=== PATIENT | female | born 1985 | race Two or more races ===

== ENCOUNTER 2016-11-02 03:57 | Emergency (ER) | payer MEDICAID, OTHER ==
[~2016-11-02] VITALS: Ht 160 cm; Wt 72.6 kg
[~2016-11-02 03:57] MED LIST: BACTRIM DOUBLE S1 E1 ORAL; CIPRO500 MG PO; HYDROCODON-ACE1 EA15 ORAL; IBUPROFEN600 MG ORAL; IBUPROFEN800 M1 PO; KEFLEX500 MG ORAL; NEOSPORIN ANT14.2 GM TP; NITROFURANTOIN100 M2 ORAL; NKM; NORCO 5-325 TA1 EACH ORAL; NORCO 5-325 TA1 EACH PO; ONDANSETRON ODT4 MG ORAL; PREDNISONE20 MG ORAL; TAMIFLU75 MG ORAL; TRAMADOL HCL50 MG ORAL; TYLENOL325 MG ORAL; ZOFRAN ODT4 MG ORAL
[2016-11-02 04:14] VITALS: BP 110/59
[2016-11-02 04:43] LABS: KETONES,URINE NEGATIVE (NEGATIVE); LEUKOCYTE ESTERASE ,URINE 3+ (NEGATIVE); NITRITE,URINE NEGATIVE (NEGATIVE); PH,URINE 6 (4.5-8.0); PROTEIN,URINE 1+ (NEGATIVE); UROBILINOGEN,URINE 8 MG/DL (0.0-1.0)
[2016-11-02 04:54] LABS: APPEARANCE,URINE SLIGHTLY CLOUDY
[2016-11-02 04:55] LABS: BACTERIA,URINE MODERATE /HPF; MUCUS,URINE FEW /LPF (NONE/OCC); SQUAMOUS EPITHELIAL CELL,UR MANY /LPF (NONE/OCC); WBC,URINE 60-80 /HPF (0 - 2); YEAST,URINE FEW /HPF
--- NOTE | 2016-11-02 05:07 | Emergency Room Report ---
History of Present Illness General Chief Complaint: Abdominal Pain Source: Patient Present Illness HPI Is a 31-year-old female with no past medical history. She presents with chief complaint of dysuria and hematuria. Onset yesterday. No nausea no vomiting. She does have chronic vaginal discharge for many months. Pap smear was unremarkable. She had urine testing for gonorrhea Chlamydia and blood testing for HIV. This was done at [facility] 2 months ago and was negative. She also said that her discharge is limited more. She essentially active with one partner. No history of STDs. No history of ectopic . No other complaint. Allergies: Coded Allergies: No Known Allergies (Unverified , 03/15/13) Patient History Past Medical History: see triage record, old chart reviewed Past Surgical History: other Pertinent Family History: none Social History: Denies: smoking Last Menstrual Period: september Now: No Immunizations: other Reviewed Nursing Documentation: PMH: Agreed, PSxH: Agreed Nursing Documentation-PMH Past Medical History: No Stated History Hx Neurological Problems: Yes - LEFT WRIST PROBLEM LAST YEAR Review of Systems Eye: Denies: blurred vision, eye pain ENT: Denies: ear pain, nose congestion, throat swelling Respiratory: Denies: cough, shortness of breath Cardiovascular: Denies: chest pain, palpitations Gastrointestinal: Denies: abdominal pain, diarrhea, nausea, vomiting Genitourinary: Reports: discharge, dysuria, hematuria, urgency Musculoskeletal: Denies: back pain, joint pain Skin: Denies: rash Neurological: Denies: headache, numbness Endocrine: Denies: increased thirst, increased urine Hematologic/Lymphatic: Denies: easy bruising All Other Systems: negative except mentioned in HPI Physical Exam Vital Signs Date Time Temp Pulse Resp B/P Pulse Ox O2 Delivery O2 Flow Rate FiO2 11/02/16 03:59 98.2 73 18 107/60 99 Room Air vitals normal Sp02 EP Interpretation: reviewed, normal General Appearance: well appearing, no apparent distress, alert Head: normocephalic, atraumatic Eyes: bilateral eye EOMI, bilateral eye PERRL ENT: hearing grossly normal, normal pharynx Neck: full range of motion, supple, no meningismus Respiratory: chest non-tender, lungs clear, normal breath sounds Cardiovascular #1: regular rate, rhythm, no murmur Gastrointestinal: normal bowel sounds, non tender, no mass, no organomegaly, no bruit, non-distended Genitourinary: other - Exam done with RN Sisi Burr as automatic wheel line operator. There is thick yellowish discharge. No cervical motion tenderness. No adnexal mass. Musculoskeletal: back normal, gait/station normal, normal range of motion Neurologic: alert, oriented x3 Psychiatric: mood/affect normal Skin: warm/dry Medical Decision Making Diagnostic Impression: Primary Impression: UTI (urinary tract infection) Qualified Codes: N30.00 - Acute cystitis without hematuria Additional Impressions: Bacterial vaginosis Vagina, candidiasis ER Course Is present with vaginal discharge and urinary complaint. Diarrhea and Chlamydia cultures sent. No evidence of Trichomonas. She she's been tested several times already, I will hold off treating gonorrhea and Chlamydia and tear we have positive culture. No evidence of ectopic. No evidence of pyelonephritis. Last Vital Signs Date Time Temp Pulse Resp B/P Pulse Ox O2 Delivery O2 Flow Rate FiO2 11/02/16 04:14 98.2 75 15 110/59 99 Room Air Status: improved Disposition: HOME, SELF-CARE Condition: Stable Scripts Fluconazole (FLUCONAZOLE) 150 Mg Tablet 150 MG ORAL ONCE, #1 TAB Prov: MANJULA WILLSON M.D. 11/02/16 Metronidazole* (FLAGYL*) 500 Mg Tablet 500 MG ORAL BID, #14 TAB 0 Refills Prov: MANJULA WILLSON M.D. 11/02/16 Cephalexin* (KEFLEX*) 500 Mg Capsule 500 MG ORAL TID, #21 CAP 0 Refills Prov: MANJULA WILLSON M.D. 11/02/16 Referrals: [facility] (PCP) Additional Instructions: Followup with your DrPayal in 3-5 days. Return if symptom worsen. MANJULA WILLSON M.D. Nov 02, 2016 05:07
[2016-11-02] MEDS ORDERED: FLAGYL500 MG ORAL (05:13)
[2016-11-02] MEDS ORDERED: FLUCONAZOLE150 MG ORAL (05:13)
[2016-11-02] MEDS ORDERED: KEFLEX500 MG ORAL (05:13)
[2016-11-02 05:15] VITALS: BP 112/62
[2016-11-02] MEDS ORDERED: Cephalexin 500mg cap ORAL ONE (05:15)
[2016-11-02 05:20] VITALS: BP 110/59
== END 2016-11-02 05:21 | disposition home or self-care (01) ==
LOC: EMR 04:29
DX: N30.00 Acute cystitis without hematuria (principal); N76.0 Acute vaginitis; B37.3 Candidiasis of vulva and vagina; R31.9 Hematuria, unspecified
CPT/HCPCS: 81003; 81025; 87086; 87181; 87210; 87491; 99284

== ENCOUNTER 2017-06-29 14:05 | Emergency (ER) | payer MEDICAID ==
[~2017-06-29] VITALS: Ht 160 cm; Wt 74.8 kg
[~2017-06-29 14:05] MED LIST changes: +FLAGYL500 MG ORAL; +FLUCONAZOLE150 MG ORAL
[2017-06-29] MEDS ORDERED: NKM (14:18)
[2017-06-29 14:57] LABS: BASOPHILS % (AUTO) 0.7 % (0.0-2.0); EOSINOPHILS % (AUTO) 2.1 % (0.0-3.0); LYMPHOCYTES % (AUTO) 24.6 % (20.0-45.0); MEAN CORPUSCULAR HEMOGLOBIN 31.5 PG (27.0-31.0); MEAN CORPUSCULAR VOLUME 95 FL (80-99); MEAN PLATELET VOLUME 8.8 FL (6.5-10.1); MONOCYTES % (AUTO) 6.4 % (1.0-10.0); NEUTROPHILS % (AUTO) 66.2 % (45.0-75.0); PLATELET COUNT 300 K/UL (150-450); RED BLOOD COUNT 4.43 M/UL (4.20-5.40); WHITE BLOOD COUNT 12.6 K/UL (4.8-10.8)
[2017-06-29 14:58] LABS: APPEARANCE,URINE CLOUDY; KETONES,URINE 1+ (NEGATIVE); LEUKOCYTE ESTERASE ,URINE 2+ (NEGATIVE); NITRITE,URINE NEGATIVE (NEGATIVE); PH,URINE 5 (4.5-8.0); PROTEIN,URINE 3+ (NEGATIVE); UROBILINOGEN,URINE 4 MG/DL (0.0-1.0)
[2017-06-29 15:05] LABS: BACTERIA,URINE FEW /HPF; RBC,URINE TNTC /HPF (0 - 2); SQUAMOUS EPITHELIAL CELL,UR FEW /LPF (NONE/OCC)
[2017-06-29 15:07] LABS: ANION GAP 7 mmol/L (5-15); CALCIUM 8.9 MG/DL (8.5-10.1); CARBON DIOXIDE 29 MMOL/L (21-32); CHLORIDE 104 MMOL/L (98-107); CREATININE 0.9 MG/DL (0.55-1.30); GLOMERULAR FILTRATION RATE > 60 mL/min (>60); POTASSIUM 3.8 MMOL/L (3.5-5.1); SODIUM 140 MMOL/L (136-145)
[2017-06-29 15:09] LABS: INR 0.9 (0.9-1.1); PROTHROMBIN TIME 9.8 SEC (9.30-11.50)
[2017-06-29 15:11] LABS: ALANINE AMINOTRANSFERASE 34 U/L (12-78); ASPARTATE AMINO TRANSFERASE 17 U/L (15-37); LIPASE 113 U/L (73-393); TOTAL PROTEIN 7.7 G/DL (6.4-8.2)
[2017-06-29] MEDS ORDERED: CEPHALEXIN500 MG ORAL (16:22)
[2017-06-29] MEDS ORDERED: IBUPROFEN600 MG ORAL (16:22)
[2017-06-29 16:28] VITALS: BP 106/67
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
--- NOTE | 2017-06-30 13:51 | Diagnostic Imaging Report ---
Indication: Vaginal bleeding Technique: Transvaginal images only. Transabdominal images not obtained, reason not stated Comparison: 02/02/2016 Findings: Nabothian cysts are seen in the cervix. The uterus measures 8.3 cm in length by 4.2 cm AP. Endometrium measures 9 mm thick. No myometrial abnormality. Right ovary measures 2.1 cm in length. It demonstrates a 14 mm follicle with hemorrhage. The left ovary cannot be visualized. No free cul-de-sac fluid Impression: Somewhat limited exam, due to absence of transabdominal images Essentially unremarkable. Incidental finding of cervical nabothian cysts. Note inability to visualize the left ovary
== END 2017-06-29 16:29 | disposition home or self-care (01) ==
LOC: EMR 14:20
DX: S39.011A Strain of muscle, fascia and tendon of abdomen, initial encounter (principal); V43.52XA Car driver injured in collision with other type car in traffic accident, initial encounter; Y92.410 Unspecified street and highway as the place of occurrence of the external cause; N93.9 Abnormal uterine and vaginal bleeding, unspecified; N39.0 Urinary tract infection, site not specified
CPT/HCPCS: 36415; 76830; 76856; 80053; 81003; 81025; 83690; 85025; 85610; 85730; 99284

== ENCOUNTER 2017-07-17 09:51 | Emergency (ER) | payer MEDICAID ==
[~2017-07-17] VITALS: Ht 157.5 cm; Wt 74.8 kg
[~2017-07-17 09:51] MED LIST changes: +CEPHALEXIN500 MG ORAL
[2017-07-17] MEDS ORDERED: Sodium Chloride 500ML 500 ML IV ONE (10:14)
[2017-07-17] MEDS ORDERED: Albuterol ud Inhalation HHN ONE (10:30)
[2017-07-17 10:40] LABS: APPEARANCE,URINE CLEAR; KETONES,URINE NEGATIVE (NEGATIVE); LEUKOCYTE ESTERASE ,URINE 3+ (NEGATIVE); NITRITE,URINE NEGATIVE (NEGATIVE); PH,URINE 6.5 (4.5-8.0); PROTEIN,URINE NEGATIVE (NEGATIVE); UROBILINOGEN,URINE NORMAL MG/DL (0.0-1.0)
[2017-07-17 11:05] LABS: BACTERIA,URINE FEW /HPF; MUCUS,URINE FEW /LPF (NONE/OCC); SQUAMOUS EPITHELIAL CELL,UR FEW /LPF (NONE/OCC)
--- NOTE | 2017-07-17 11:13 | Diagnostic Imaging Report ---
Indication: Reason For Exam: COUGH Technique: 2 views of the chest Comparison: 11/29/2015. Findings: Lungs and pleural spaces are clear. Heart size is normal. Bones are unremarkable.. Impression: No acute process
--- NOTE | 2017-07-17 11:30 | Emergency Room Report ---
History of Present Illness General Chief Complaint: Flu Like Symptoms Source: Patient Present Illness HPI Patient complains of cough for the past 5 days. She states that the cough is pretty severe 5 days ago but it has improved significantly over that time. Initially she denies sputum production but no longer has any sputum production. She denies nasal congestion or fullness. She denies headache or neck pain. She denies chest pain. She denies abdominal pain. She denies fever or chills. She has no other complaints. Allergies: Coded Allergies: No Known Allergies (Unverified , 03/15/13) Patient History Past Medical History: none Past Surgical History: none Pertinent Family History: none Social History: Denies: smoking, alcohol use, drug use Reviewed Nursing Documentation: PMH: Agreed, PSxH: Agreed Nursing Documentation-PMH Hx Neurological Problems: Yes - LEFT WRIST PROBLEM LAST YEAR Review of Systems All Other Systems: negative except mentioned in HPI Physical Exam Vital Signs Date Time Temp Pulse Resp B/P (MAP) Pulse Ox O2 Delivery O2 Flow Rate FiO2 07/17/17 09:58 98.1 76 20 101/63 99 Room Air 07/17/17 11:07 21 Sp02 EP Interpretation: reviewed, normal General Appearance: no apparent distress, alert, GCS 15, non-toxic Head: normocephalic, atraumatic Eyes: bilateral eye normal inspection, bilateral eye PERRL ENT: hearing grossly normal, normal pharynx, no angioedema, normal voice Neck: full range of motion, supple/symm/no masses Respiratory: chest non-tender, lungs clear, normal breath sounds, speaking full sentences Cardiovascular #1: regular rate, rhythm, no edema Rectal: deferred Musculoskeletal: back normal, gait/station normal, normal range of motion, non- tender Neurologic: alert, oriented x3, responsive, motor strength/tone normal, sensory intact, speech normal Psychiatric: judgement/insight normal, memory normal, mood/affect normal, no suicidal/homicidal ideation Skin: normal color, no rash, warm/dry, well hydrated Medical Decision Making Diagnostic Impression: Primary Impression: Upper respiratory infection ER Course This patient has a clinical presentation with upper respiratory tract infection. The evaluation was very reassuring with a normal lung exam, no respiratory distress, normal pulse oximetry. Chest x-ray is unremarkable. I am not concerned for pneumonia in this patient. This is most likely viral and will not need antibiotic therapy. I will treat supportively with cough suppressants. No emergency medical condition was identified. Laboratory Tests Test 07/17/17 10:20 Urine Color Yellow Urine Appearance Clear Urine pH 6.5 (4.5-8.0) Urine Specific [place] 1.015 (1.005-1.035) Urine Protein Negative (NEGATIVE) Urine Glucose (UA) Negative (NEGATIVE) Urine Ketones Negative (NEGATIVE) Urine Occult Blood 3+ (NEGATIVE) H Urine Nitrite Negative (NEGATIVE) Urine Bilirubin Negative (NEGATIVE) Urine Urobilinogen Normal MG/DL (0.0-1.0) Urine Leukocyte Esterase 3+ (NEGATIVE) H Urine RBC 2-4 /HPF (0 - 2) H Urine WBC 5-10 /HPF (0 - 2) H Urine Squamous Epithelial Cells Few /LPF (NONE/OCC) Urine Bacteria Few /HPF (NONE) Urine Mucus Few /LPF (NONE/OCC) H Microbiology Date/Time Source Procedure Growth Status 07/17/17 10:20 Nasal Nares Influenza Types A,B Antigen (ANNA) - Final Complete Chest X-Ray Diagnostic Results Chest X-Ray Diagnostic Results : Chest X-Ray Ordered: Yes # of Views/Limited/Complete: 1 View Indication: Other - cough EP Interpretation: Yes Interpretation: no consolidation, no effusion, no pneumothorax, no acute cardiopulmonary disease Impression: No acute disease Electronically Signed by: Allan Last Vital Signs Date Time Temp Pulse Resp B/P (MAP) Pulse Ox O2 Delivery O2 Flow Rate FiO2 07/17/17 11:07 21 07/17/17 11:07 75 20 Room Air 07/17/17 09:58 98.1 101/63 99 Status: improved Disposition: HOME, SELF-CARE Condition: Improved Referrals: [facility]ERR[facility] (PCP) HARIS MORELAND D.O. Jul 17, 2017 11:30
[2017-07-17 11:43] VITALS: BP 118/76
== END 2017-07-17 11:43 | disposition home or self-care (01) ==
LOC: EMR 10:12
DX: J06.9 Acute upper respiratory infection, unspecified (principal)
CPT/HCPCS: 71020; 81003; 86710; 94640; 94664; 99283; J7040

== ENCOUNTER 2018-02-02 14:01 | Emergency (ER) | payer MEDICAID, OTHER ==
[~2018-02-02] VITALS: Ht 157.5 cm; Wt 68.0 kg
--- NOTE | 2018-02-02 14:33 | Emergency Room Report ---
History of Present Illness General Chief Complaint: Abdominal Pain Source: Patient Present Illness HPI Pt sent from PCP office for elevated BP and concern for pregnanacy. Pt complains of lower abd pain, no vaginal d/c or dysuria. Pt states home BP was 174 systolic. Pt is [id number] 01/11. Allergies: Coded Allergies: No Known Allergies (Unverified , 03/15/13) Patient History Past Medical History: none Past Surgical History: none Pertinent Family History: none Social History: Denies: smoking, alcohol use, drug use Last Menstrual Period: 01/07/18 : 2 Para: 2 Nursing Documentation-[facility] Past Medical History: No Stated History Hx Neurological Problems: Yes - LEFT WRIST PROBLEM LAST YEAR Review of Systems Constitutional: Denies: no symptoms, see HPI, chills, sweats, fever, malaise, weakness, other Eye: Denies: no symptoms, see HPI, eye pain, blurred vision, tearing, double vision, nose pain, nose congestion, acuity changes, discharge, other ENT: Denies: no symptoms, see HPI, ear pain, ear discharge, nose pain, nose congestion, throat pain, throat swelling, mouth pain, hearing loss, nasal discharge, other Respiratory: Denies: no symptoms, see HPI, cough, orthopnea, shortness of breath, stridor, wheezing, KANG, sputum, other Cardiovascular: Denies: no symptoms, see HPI, chest pain, edema, palpitations, syncope, PND, other Gastrointestinal: Denies: no symptoms, see HPI, abdominal pain, constipation, diarrhea, nausea, vomiting, melena, hematemesis, other Genitourinary: Reports: see HPI Musculoskeletal: Denies: no symptoms, see HPI, back pain, gout, joint pain, joint swelling, muscle pain, muscle stiffness, other Skin: Denies: no symptoms, see HPI, rash, change in color, change in hair/nails , dryness, lesions, other Psychiatric: Denies: no symptoms, see HPI, prior hx, anxiety, depressed feelings, emotional problems, SI, HI, hallucinations, other Neurological: Denies: no symptoms, see HPI, headache, numbness, paresthesia, seizure, tingling, tremors, focal weakness, syncope, dizziness, other Hematologic/Lymphatic: Denies: no symptoms, see HPI, anemia, blood clots, easy bleeding, easy bruising, swollen glands, diathesis, other Physical Exam Vital Signs Date Time Temp Pulse Resp B/P (MAP) Pulse Ox O2 Delivery O2 Flow Rate FiO2 02/02/18 14:08 98.3 82 18 106/53 97 Room Air 98.2 Sp02 EP Interpretation: reviewed, normal General Appearance: no apparent distress, alert, GCS 15, non-toxic Head: normocephalic, atraumatic Eyes: bilateral eye normal inspection, bilateral eye PERRL ENT: hearing grossly normal, normal pharynx, no angioedema, normal voice Neck: full range of motion, supple/symm/no masses Respiratory: chest non-tender, lungs clear, normal breath sounds, speaking full sentences Cardiovascular #1: regular rate, rhythm, no edema Cardiovascular #2: 2+ carotid (R), 2+ carotid (L), 2+ radial (R), 2+ radial (L) , 2+ dorsalis pedis (R), 2+ dorsalis pedis (L) Gastrointestinal: normal bowel sounds, non tender, soft, non-distended, no guarding, no rebound Musculoskeletal: back normal, gait/station normal, normal range of motion, non- tender, calf tenderness Neurologic: alert, oriented x3, responsive, motor strength/tone normal, sensory intact, speech normal Psychiatric: judgement/insight normal, memory normal, mood/affect normal, no suicidal/homicidal ideation Reflexes: 3+ bicep (R), 3+ bicep (L), 3+ tricep (R), 3+ tricep (L), 3+ knee (R) , 3+ knee (L) Skin: normal color, no rash, warm/dry, well hydrated Medical Decision Making Diagnostic Impression: Primary Impression: UTI (urinary tract infection) ER Course Pt with lower abd pain and concern for preganancy with HTN. Pts BP has been normal here. Labs show ?UTI with dirty sample but will start antibiotics given symptoms and pt will call in 48 hours fro culture results.Pt agrees with D/C home and plan. Laboratory Tests Test 02/02/18 14:40 White Blood Count 9.9 K/UL (4.8-10.8) Red Blood Count 4.01 M/UL (4.20-5.40) L Hemoglobin 12.7 G/DL (12.0-16.0) Hematocrit 37.8 % (37.0-47.0) Mean Corpuscular Volume 94 FL (80-99) Mean Corpuscular Hemoglobin 31.5 PG (27.0-31.0) H Mean Corpuscular Hemoglobin Concent 33.5 G/DL (32.0-36.0) Red Cell Distribution Width 11.1 % (11.6-14.8) L Platelet Count 232 K/UL (150-450) Mean Platelet Volume 9.0 FL (6.5-10.1) Neutrophils (%) (Auto) 58.8 % (45.0-75.0) Lymphocytes (%) (Auto) 30.8 % (20.0-45.0) Monocytes (%) (Auto) 6.9 % (1.0-10.0) Eosinophils (%) (Auto) 2.6 % (0.0-3.0) Basophils (%) (Auto) 0.9 % (0.0-2.0) Urine Color [place] Urine Appearance Slightly cloudy Urine pH 7 (4.5-8.0) Urine Specific [place] 1.015 (1.005-1.035) Urine Protein 1+ (NEGATIVE) H Urine Glucose (UA) Negative (NEGATIVE) Urine Ketones Negative (NEGATIVE) Urine Occult Blood 2+ (NEGATIVE) H Urine Nitrite Negative (NEGATIVE) Urine Bilirubin Negative (NEGATIVE) Urine Ictotest Negative Urine Urobilinogen 4 MG/DL (0.0-1.0) H Urine Leukocyte Esterase 2+ (NEGATIVE) H Urine RBC 60-80 /HPF (0 - 2) H Urine WBC 10-15 /HPF (0 - 2) H Urine Squamous Epithelial Cells Moderate /LPF (NONE/OCC) H Urine Bacteria Moderate /HPF (NONE) H Urine HCG, Qualitative Negative (NEGATIVE) Sodium Level 141 MMOL/L (136-145) Potassium Level 3.6 MMOL/L (3.5-5.1) Chloride Level 106 MMOL/L (98-107) Carbon Dioxide Level 28 MMOL/L (21-32) Anion Gap 7 mmol/L (5-15) Blood Urea Nitrogen 13 mg/dL (7-18) Creatinine 0.8 MG/DL (0.55-1.30) Estimat Glomerular Filtration Rate > 60 mL/min (>60) Glucose Level 97 MG/DL (74-106) Calcium Level 8.8 MG/DL (8.5-10.1) Total Bilirubin 0.4 MG/DL (0.2-1.0) Aspartate Amino Transf (AST/SGOT) 13 U/L (15-37) L Alanine Aminotransferase (ALT/SGPT) 25 U/L (12-78) Alkaline Phosphatase 59 U/L (46-116) Total Protein 7.2 G/DL (6.4-8.2) Albumin 3.7 G/DL (3.4-5.0) Globulin 3.5 g/dL Albumin/Globulin Ratio 1.1 (1.0-2.7) Lipase 109 U/L (73-393) Human Chorionic Gonadotropin, Quant 1 mIU/mL (1-6) Last Vital Signs Date Time Temp Pulse Resp B/P (MAP) Pulse Ox O2 Delivery O2 Flow Rate FiO2 02/02/18 14:08 98.3 82 18 106/53 97 Room Air 98.2 Disposition: HOME, SELF-CARE Condition: Stable Scripts Cephalexin* (KEFLEX*) 500 Mg Capsule 500 MG ORAL EVERY 6 HOURS for 7 Days, #21 CAP Prov: JUSTIN GODOY 02/02/18 JUSTIN GODOY Feb 02, 2018 14:33
[2018-02-02 14:45] VITALS: BP 106/53
[2018-02-02 15:11] LABS: BASOPHILS % (AUTO) 0.9 % (0.0-2.0); EOSINOPHILS % (AUTO) 2.6 % (0.0-3.0); HEMATOCRIT 37.8 % (37.0-47.0); HEMOGLOBIN 12.7 G/DL (12.0-16.0); LYMPHOCYTES % (AUTO) 30.8 % (20.0-45.0); MEAN CORPUSCULAR VOLUME 94 FL (80-99); MONOCYTES % (AUTO) 6.9 % (1.0-10.0); NEUTROPHILS % (AUTO) 58.8 % (45.0-75.0); PLATELET COUNT 232 K/UL (150-450); RED BLOOD COUNT 4.01 M/UL (4.20-5.40); RED CELL DISTRIBUTION WIDTH 11.1 % (11.6-14.8); WHITE BLOOD COUNT 9.9 K/UL (4.8-10.8)
[2018-02-02 15:13] LABS: APPEARANCE,URINE SLIGHTLY CLOUDY; BILIRUBIN, URINE NEGATIVE (NEGATIVE); COLOR,URINE AMBER; GLUCOSE, URINE (UA) NEGATIVE (NEGATIVE); KETONES,URINE NEGATIVE (NEGATIVE); LEUKOCYTE ESTERASE ,URINE 2+ (NEGATIVE); NITRITE,URINE NEGATIVE (NEGATIVE); PH,URINE 7 (4.5-8.0); PROTEIN,URINE 1+ (NEGATIVE); UROBILINOGEN,URINE 4 MG/DL (0.0-1.0)
[2018-02-02 15:24] LABS: ANION GAP 7 mmol/L (5-15); BLOOD UREA NITROGEN 13 mg/dL (7-18); CALCIUM 8.8 MG/DL (8.5-10.1); CARBON DIOXIDE 28 MMOL/L (21-32); CHLORIDE 106 MMOL/L (98-107); CREATININE 0.8 MG/DL (0.55-1.30); POTASSIUM 3.6 MMOL/L (3.5-5.1); SODIUM 141 MMOL/L (136-145)
[2018-02-02 15:28] LABS: ALANINE AMINOTRANSFERASE 25 U/L (12-78); ALBUMIN 3.7 G/DL (3.4-5.0); ALBUMIN/GLOBULIN RATIO 1.1 (1.0-2.7); ALKALINE PHOSPHATASE 59 U/L (46-116); ASPARTATE AMINO TRANSFERASE 13 U/L (15-37); BILIRUBIN,TOTAL 0.4 MG/DL (0.2-1.0)
[2018-02-02] MEDS ORDERED: CEPHALEXIN500 MG ORAL (16:00)
[2018-02-02 16:15] VITALS: BP 110/72
== END 2018-02-02 16:28 | disposition home or self-care (01) ==
LOC: EMR 16:28
DX: N39.0 Urinary tract infection, site not specified (principal)
CPT/HCPCS: 36415; 80053; 81003; 81025; 83690; 84702; 85025; 87086; 87181; 99283

== ENCOUNTER 2018-03-30 06:40 | Emergency (ER) | payer OTHER ==
[~2018-03-30] VITALS: Ht 157.5 cm; Wt 72.6 kg
[2018-03-30 06:58] VITALS: BP 97/55
[2018-03-30] MEDS ORDERED: IBUPROFEN600 MG ORAL (07:08)
--- NOTE | 2018-03-30 07:08 | Emergency Room Report ---
History of Present Illness General Chief Complaint: Pain Source: Patient Present Illness HPI Patient presents with complaints of pain to the left facial region Essentially points to just anterior to the left year and moving upward towards the temporal area Denies any type pain denies any visual changes Discomfort started on Friday and has persisted Denies any ear pain denies any fevers or chills Denies any recent dental work Pain is worse with touch and movement Allergies: Coded Allergies: No Known Allergies (Unverified , 03/15/13) Patient History Past Medical History: see triage record Pertinent Family History: none Reviewed Nursing Documentation: PMH: Agreed; PSxH: Agreed Nursing Documentation-[facility] Past Medical History: No Stated History Hx Neurological Problems: Yes - LEFT WRIST PROBLEM LAST YEAR Review of Systems All Other Systems: negative except mentioned in HPI Physical Exam Vital Signs Date Time Temp Pulse Resp B/P (MAP) Pulse Ox O2 Delivery O2 Flow Rate FiO2 03/30/18 06:49 98.1 72 16 97/55 97 Room Air 98.1 Sp02 EP Interpretation: reviewed, normal General Appearance: well appearing, no apparent distress Head: normocephalic, atraumatic, other - Some discomfort reproduced on palpation of the region just anterior to the tragus on the left side, also discomfort just appear to that Eyes: bilateral eye PERRL, bilateral eye EOMI ENT: normal pharynx, no angioedema, other - Left back molar lower tooth appears to be eroding into the gingival area Neck: supple, thyroid normal Respiratory: lungs clear, normal breath sounds Cardiovascular #1: regular rate, rhythm Gastrointestinal: non tender, soft Musculoskeletal: normal inspection - Patient able to open and close her mouth, it does consult some discomfort to the left TMJ region Neurologic: alert, oriented x3, it security administrator III-XII nml as tested Skin: no rash, warm/dry Lymphatic: no adenopathy Medical Decision Making Diagnostic Impression: Primary Impression: TMJ pain dysfunction syndrome ER Course Patient's discomfort is palpated at the TMJ site on the left side, there is question of some dental pathology as well, no obvious trismus Patient does not display other signs of temporal arteritis At this time will have initial conservative outpatient trial and return with any changes Recommended to follow up with primary physician also dentist in the next 2-3 days Last Vital Signs Date Time Temp Pulse Resp B/P (MAP) Pulse Ox O2 Delivery O2 Flow Rate FiO2 03/30/18 06:58 98.1 16 97/55 97 Room Air 98.1 03/30/18 06:49 72 Status: unchanged Disposition: HOME, SELF-CARE Condition: Stable Referrals: NOT CHOSEN IPA/MD,REFERRING (PCP) Additional Instructions: Patient is provided with the discharge instructions notified to follow up with primary doctor in the next 2-3 days otherwise return to the er with any worsening symptoms. Please note that this report is being documented using DRAGON technology. This can lead to erroneous entry secondary to incorrect interpretation by the dictating instrument. Gabby Raman DO Mar 30, 2018 07:08
[2018-03-30 07:24] VITALS: BP 97/55
== END 2018-03-30 07:24 | disposition home or self-care (01) ==
LOC: EMR 06:58
DX: M26.602 Left temporomandibular joint disorder, unspecified (principal)
CPT/HCPCS: 99282

== ENCOUNTER 2018-06-26 05:22 | Emergency (ER) | payer OTHER ==
[~2018-06-26] VITALS: Ht 157.5 cm; Wt 72.6 kg
[2018-06-26 05:43] VITALS: BP 112/65
[2018-06-26] MEDS ORDERED: Methocarbamol 750mg tab ORAL ONE (06:00)
[2018-06-26] MEDS ORDERED: Ketorolac 30mg Inj IM ONE (06:00)
[2018-06-26] MEDS ORDERED: Norco 5mg/325mg tab ORAL ONE (06:00)
[2018-06-26 06:12] VITALS: BP 110/59
[2018-06-26] MEDS ORDERED: ROBAXIN-750750 MG PO (06:28)
[2018-06-26] MEDS ORDERED: LIDODERM700 M1 TOPIC (06:28)
[2018-06-26] MEDS ORDERED: IBUPROFEN600 MG ORAL (06:28)
[2018-06-26] MEDS ORDERED: NORCO 5-325 TA1 EACH ORAL (06:28)
[2018-06-26 06:59] VITALS: BP 112/65
--- NOTE | 2018-06-26 22:18 | Emergency Room Report ---
History of Present Illness General Chief Complaint: Neck Pain Source: Patient Present Illness HPI 32-year-old female presents ED for evaluation. Complaining of neck pain 5 days. Started when she woke up on Friday. States that she's been having on and off neck problems. States that her pillows are old. States that she has had a previous next spasm in the past. Pain is sharp, 10 out of 10, nonradiating. Denies headache, photophobia. Denies blurry vision. Denies nausea or vomiting. Denies fevers or chills. Denies recent injury. No other aggravating relieving factors. Denies any other associated symptoms Allergies: Coded Allergies: No Known Allergies (Unverified , 03/15/13) Patient History Past Medical History: none Past Surgical History: none Pertinent Family History: none Social History: Denies: smoking, alcohol use, drug use Last Menstrual Period: 06/24/18 Now: No Immunizations: UTD Reviewed Nursing Documentation: PMH: Agreed; PSxH: Agreed Nursing Documentation-PMH Past Medical History: No Stated History Hx Neurological Problems: Yes - LEFT WRIST PROBLEM LAST YEAR Review of Systems All Other Systems: negative except mentioned in HPI Physical Exam Vital Signs Date Time Temp Pulse Resp B/P (MAP) Pulse Ox O2 Delivery O2 Flow Rate FiO2 06/26/18 05:26 98.2 70 16 102/65 98 Room Air Sp02 EP Interpretation: reviewed, normal General Appearance: no apparent distress, alert, GCS 15, non-toxic Head: normocephalic Eyes: bilateral eye normal inspection, bilateral eye PERRL ENT: hearing grossly normal, normal pharynx, no angioedema, normal voice, TMs + canals normal Neck: no meningismus, no bony tend, tender lateral Respiratory: normal inspection Cardiovascular #1: normal inspection Gastrointestinal: normal inspection Rectal: deferred Genitourinary: no CVA tenderness Musculoskeletal: normal inspection Neurologic: alert, oriented x3, responsive, turkey cleaner III-XII nml as tested, motor strength/tone normal, sensory intact, speech normal Psychiatric: normal inspection Skin: normal inspection Lymphatic: normal inspection Medical Decision Making Diagnostic Impression: Primary Impression: Cervical strain, acute Qualified Codes: S16.1XXA - Strain of muscle, fascia and tendon at neck level , initial encounter Additional Impression: Neck pain ER Course Hospital Course 32-year-old female presents ED complaining of left-sided neck pain x 5 days Differential diagnoses include: neck strain, shoulder strain, dislocation/ fracture Clinical course Patient placed on stretcher. After initial history and physical exam reveals a female in mild acute distress. On exam there is no midline neck tenderness or shoulder tenderness. Full range of motion to the shoulder. There is pain over the trapezius. Consistent with a neck strain/shoulder strain I ordered Toradol, [place], Lidoderm patch, Robaxin in ED. Upon reassessment pain is improved Discussed findings with patient. We will discharge with similar regimen of pain medications. Safe for discharge close outpatient follow-up Diagnosis - cervical strain Stable and discharged to home with prescription for treatment motrin, robaxin, lidoderm, norco. Followup with PMD. Return to ED if symptoms recur or worsen Last Vital Signs Date Time Temp Pulse Resp B/P (MAP) Pulse Ox O2 Delivery O2 Flow Rate FiO2 06/26/18 06:59 98.5 72 15 112/65 100 Room Air Status: improved Disposition: HOME, SELF-CARE Condition: Stable Scripts Lidocaine (Lidoderm) 1 Each Adh..patch 1 PATCH TOPIC DAILY, #7 PATCH 0 Refills Patch(es) may remain in place for up to 12 hours in any 24-hour period. Prov: Jake Carr MD 06/26/18 Methocarbamol* (ROBAXIN-750*) 750 Mg Tablet 750 MG PO TID, #21 TAB 0 Refills Prov: Jake Carr MD 06/26/18 Hydrocodone Bit/Acetaminophen 5-325* (NORCO 5-325*) 1 Each Tablet 1 TAB ORAL Q6H PRN for For Pain, #10 TAB 0 Refills Prov: Jake Carr MD 06/26/18 Ibuprofen* (MOTRIN*) 600 Mg Tablet 600 MG ORAL Q8H PRN for For Pain, #30 TAB 0 Refills Prov: Jake Carr MD 06/26/18 Departure Forms: Return to Work Return to Work Date: Jun 29, 2018 Work Restrictions: No Heavy Lifting Patient Instructions: Cervical Strain and Sprain With Rehab-Sports[facility] Jake Carr MD Jun 26, 2018 22:18
== END 2018-06-26 06:59 | disposition home or self-care (01) ==
LOC: EMR 05:39
DX: S16.1XXA Strain of muscle, fascia and tendon at neck level, initial encounter (principal); X58.XXXA Exposure to other specified factors, initial encounter
CPT/HCPCS: 96372; 99283; J1885

== ENCOUNTER 2018-09-12 08:43 | Emergency (ER) | payer OTHER ==
[~2018-09-12] VITALS: Ht 157.5 cm; Wt 74.8 kg
[~2018-09-12 08:43] MED LIST changes: +LIDODERM700 M1 TOPIC; +ROBAXIN-750750 MG PO
--- NOTE | 2018-09-12 08:55 | NUR ---
ED Nurse Note: PT WALKED IN TO ER TODAY FROM HOME. AOX4. PT C/O ABDOMINAL CRAMPING, 8/10 PAIN, NAUSEA, VOMITING AND DIARRHEA X 2 DAYS AGO. ACTIVE BOWEL SOUNDS IN ALL QUADRANTS. ABDOMEN NONDISTENDED AND NONTENDER TO PALPATION. LAST BM X THIS AM WHICH PT STATES WAS LIQUID. 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
[2018-09-12 09:28] LABS: BASOPHILS % (AUTO) 0.7 % (0.0-2.0); EOSINOPHILS % (AUTO) 2.5 % (0.0-3.0); HEMATOCRIT 39.8 % (37.0-47.0); HEMOGLOBIN 13.8 G/DL (12.0-16.0); LYMPHOCYTES % (AUTO) 24.1 % (20.0-45.0); MEAN CORPUSCULAR VOLUME 93 FL (80-99); MONOCYTES % (AUTO) 3.9 % (1.0-10.0); NEUTROPHILS % (AUTO) 68.9 % (45.0-75.0); PLATELET COUNT 294 K/UL (150-450); RED BLOOD COUNT 4.27 M/UL (4.20-5.40); WHITE BLOOD COUNT 11.7 K/UL (4.8-10.8)
[2018-09-12 09:31] LABS: APPEARANCE,URINE CLEAR; BILIRUBIN, URINE NEGATIVE (NEGATIVE); GLUCOSE, URINE (UA) NEGATIVE (NEGATIVE); KETONES,URINE 1+ (NEGATIVE); LEUKOCYTE ESTERASE ,URINE 1+ (NEGATIVE); NITRITE,URINE NEGATIVE (NEGATIVE); PH,URINE 6 (4.5-8.0); PROTEIN,URINE 2+ (NEGATIVE); UROBILINOGEN,URINE 4 MG/DL (0.0-1.0)
[2018-09-12 09:41] LABS: COLOR,URINE YELLOW
[2018-09-12 09:48] LABS: ANION GAP 9 mmol/L (5-15); BLOOD UREA NITROGEN 8 mg/dL (7-18); CALCIUM 9.1 MG/DL (8.5-10.1); CARBON DIOXIDE 25 MMOL/L (21-32); CHLORIDE 101 MMOL/L (98-107); CREATININE 0.6 MG/DL (0.55-1.30); POTASSIUM 3.6 MMOL/L (3.5-5.1); SODIUM 135 MMOL/L (136-145)
[2018-09-12 09:49] LABS: ALANINE AMINOTRANSFERASE 30 U/L (12-78); ALBUMIN 3.3 G/DL (3.4-5.0); ALBUMIN/GLOBULIN RATIO 0.8 (1.0-2.7); ALKALINE PHOSPHATASE 63 U/L (46-116); ASPARTATE AMINO TRANSFERASE 17 U/L (15-37); BILIRUBIN,TOTAL 0.4 MG/DL (0.2-1.0)
[2018-09-12] MEDS ORDERED: RANITIDINE HCL150 MG ORAL (10:46)
[2018-09-12] MEDS ORDERED: DICYCLOMINE HCL10 MG PO (10:46)
[2018-09-12] MEDS ORDERED: ONDANSETRON ODT4 MG BC (10:46)
[2018-09-12 10:52] VITALS: BP 110/72
--- NOTE | 2018-09-12 10:52 | Diagnostic Imaging Report ---
EXAM: US First Trimester, Transabdominal US , Transvaginal CLINICAL HISTORY: ABD PAIN TECHNIQUE: Real-time transabdominal and transvaginal obstetrical ultrasound of the maternal pelvis and a first trimester with image documentation. Transvaginal imaging was used for better evaluation of the fetus and adnexa. COMPARISON: No relevant prior studies available. FINDINGS: Gestation: Single, live, intrauterine gestation, with estimated gestational age of 11 weeks 3 days and ROCAEL of 03/31/19. [place]-rump length of 44.8 mm. 9 x 8 mm yolk sac. heart rate of 153 bpm. Placenta/amniotic fluid: Cannot be adequately evaluated due to the early gestational age. Uterus/cervix: Septated uterus. Subcentimeter cervical nabothian cysts. Cervical length of 4.3 cm. No myometrial mass. Ovaries: The ovaries were not identified by transvaginal sonography. Free fluid: No free fluid. IMPRESSION: 1. Single, live, intrauterine gestation, with estimated gestational age of 11 weeks 3 days and ROCAEL of 03/31/19. 2. Septated uterus. 3. Subcentimeter cervical nabothian cysts.
--- NOTE | 2018-09-12 10:54 | NUR ---
ED Nurse Note: PT LAYING PEACEFULLY IN BED IN NAD. AOX4. PRESCRIPTIONS AND DISCHARGE PAPERWORK EXPLAINED TO PT. PT VERBALIZES UNDERSTANDING AND ALL QUESTIONS ANSWERED. PRESCRIPTIONS AND DISCHARGE PAPERWORK GIVEN TO PT, IV AND ID WRISTBAND REMOVED. PT WALKED OUT OF ER WITH STEADY GAIT AND ALL BELONGINGS.
--- NOTE | 2018-09-12 14:03 | Emergency Room Report ---
History of Present Illness General Chief Complaint: Complications Source: Patient Present Illness HPI 33-year-old female presents ED for evaluation. Present with abdominal pain with vomiting and diarrhea 2 days. Pain is cramping, 8 out of 10, nonradiating. Denies any recent travel or recent antibiotic use. Denies sick contacts. States that she is about 12 weeks . Denies any spotting or bleeding. Denies fevers or chills. No other aggravating relieving factors. Denies any other associated symptoms Allergies: Coded Allergies: No Known Allergies (Unverified , 03/15/13) Patient History Past Medical History: none Past Surgical History: none Pertinent Family History: none Social History: Denies: smoking, alcohol use, drug use Last Menstrual Period: 06/18/2018 Now: Yes : 3 Para: 2 Immunizations: UTD Reviewed Nursing Documentation: PMH: Agreed; PSxH: Agreed Nursing Documentation-PM Past Medical History: No Stated History Hx Neurological Problems: Yes - LEFT WRIST PROBLEM LAST YEAR Review of Systems All Other Systems: negative except mentioned in HPI Physical Exam Vital Signs Date Time Temp Pulse Resp B/P (MAP) Pulse Ox O2 Delivery O2 Flow Rate FiO2 09/12/18 08:51 98.2 92 16 105/66 97 Room Air Sp02 EP Interpretation: reviewed, normal General Appearance: no apparent distress, alert, GCS 15, non-toxic Head: normocephalic, atraumatic Eyes: bilateral eye normal inspection, bilateral eye PERRL ENT: hearing grossly normal, normal pharynx, no angioedema, normal voice Neck: full range of motion, supple/symm/no masses Respiratory: chest non-tender, lungs clear, normal breath sounds, speaking full sentences Cardiovascular #1: regular rate, rhythm, no edema Cardiovascular #2: 2+ carotid (R), 2+ carotid (L), 2+ radial (R), 2+ radial (L) , 2+ dorsalis pedis (R), 2+ dorsalis pedis (L) Gastrointestinal: normal bowel sounds, non tender, soft, non-distended, no guarding, no rebound Rectal: deferred Genitourinary: normal inspection, no CVA tenderness Musculoskeletal: back normal, gait/station normal, normal range of motion, non- tender Neurologic: alert, oriented x3, responsive, motor strength/tone normal, sensory intact, speech normal Psychiatric: judgement/insight normal, memory normal, mood/affect normal, no suicidal/homicidal ideation Reflexes: 3+ bicep (R), 3+ bicep (L), 3+ tricep (R), 3+ tricep (L), 3+ knee (R) , 3+ knee (L) Skin: normal color, no rash, warm/dry, well hydrated Lymphatic: no adenopathy Medical Decision Making Diagnostic Impression: Primary Impression: Threatened Additional Impression: Gastroenteritis ER Course Hospital Course 33-year-old female presents to ED complaining of abdominal pain with vomiting and dirrhea, + Differential diagnoses include: gastrits, gastroenterits, ectopic , ovarian torsion/cyst, UTI Clinical course Patient placed on stretcher in ED. After initial history and physical I ordered labs, IV fluids and Zofran, pepcid and pelvic ultrasound. Labs-no leukocytosis, electrolytes okay, UA negative OB ultrasound-IUP detected with heart rate Discussed findings with patient. Likely gastroenteritis. Still recommended patient follow-up with her DIRECTOR OF PUPIL PERSONNEL PROGRAM with serial ultrasounds. Patient agrees with plan. Safe for discharge close outpatient follow-up. States she has a PMD Diagnosis - threatened , gastroenteritis Stable and discharged to home with Rx zofran, zantac, bentyl. Followup with PMD /DIRECTOR OF PUPIL PERSONNEL PROGRAM. Return to ED if symptoms recur or worsen Labs Test 09/12/18 09:11 White Blood Count 11.7 K/UL (4.8-10.8) Red Blood Count 4.27 M/UL (4.20-5.40) Hemoglobin 13.8 G/DL (12.0-16.0) Hematocrit 39.8 % (37.0-47.0) Mean Corpuscular Volume 93 FL (80-99) Mean Corpuscular Hemoglobin 32.4 PG (27.0-31.0) Mean Corpuscular Hemoglobin Concent 34.8 G/DL (32.0-36.0) Red Cell Distribution Width 11.0 % (11.6-14.8) Platelet Count 294 K/UL (150-450) Mean Platelet Volume 7.3 FL (6.5-10.1) Neutrophils (%) (Auto) 68.9 % (45.0-75.0) Lymphocytes (%) (Auto) 24.1 % (20.0-45.0) Monocytes (%) (Auto) 3.9 % (1.0-10.0) Eosinophils (%) (Auto) 2.5 % (0.0-3.0) Basophils (%) (Auto) 0.7 % (0.0-2.0) Urine Color Yellow Urine Appearance Clear Urine pH 6 (4.5-8.0) Urine Specific [place] 1.020 (1.005-1.035) Urine Protein 2+ (NEGATIVE) Urine Glucose (UA) Negative (NEGATIVE) Urine Ketones 1+ (NEGATIVE) Urine Blood 4+ (NEGATIVE) Urine Nitrite Negative (NEGATIVE) Urine Bilirubin Negative (NEGATIVE) Urine Urobilinogen 4 MG/DL (0.0-1.0) Urine Leukocyte Esterase 1+ (NEGATIVE) Urine RBC 2-4 /HPF (0 - 2) Urine WBC 2-4 /HPF (0 - 2) Urine Squamous Epithelial Cells Few /LPF (NONE/OCC) Urine Bacteria Few /HPF (NONE) Urine Mucus Moderate /LPF (NONE/OCC) Urine HCG, Qualitative Positive (NEGATIVE) Sodium Level 135 MMOL/L (136-145) Potassium Level 3.6 MMOL/L (3.5-5.1) Chloride Level 101 MMOL/L (98-107) Carbon Dioxide Level 25 MMOL/L (21-32) Anion Gap 9 mmol/L (5-15) Blood Urea Nitrogen 8 mg/dL (7-18) Creatinine 0.6 MG/DL (0.55-1.30) Estimat Glomerular Filtration Rate > 60 mL/min (>60) Glucose Level 110 MG/DL (74-106) Calcium Level 9.1 MG/DL (8.5-10.1) Total Bilirubin 0.4 MG/DL (0.2-1.0) Aspartate Amino Transf (AST/SGOT) 17 U/L (15-37) Alanine Aminotransferase (ALT/SGPT) 30 U/L (12-78) Alkaline Phosphatase 63 U/L (46-116) Total Protein 7.4 G/DL (6.4-8.2) Albumin 3.3 G/DL (3.4-5.0) Globulin 4.1 g/dL Albumin/Globulin Ratio 0.8 (1.0-2.7) Lipase 117 U/L (73-393) Human Chorionic Gonadotropin, Quant 022220 mIU/mL (1-6) CT/MRI/US Diagnostic Results CT/MRI/US Diagnostic Results : Imaging Test Ordered: OB US Impression 1. Single, live, intrauterine gestation, with estimated gestational age of 11 weeks 3 days and ROCAEL of 03/31/19. 2. Septated uterus. 3. Subcentimeter cervical nabothian cysts. Last Vital Signs Date Time Temp Pulse Resp B/P (MAP) Pulse Ox O2 Delivery O2 Flow Rate FiO2 09/12/18 10:52 98.4 86 16 110/72 99 Room Air Status: improved Disposition: HOME, SELF-CARE Condition: Stable Scripts Dicyclomine Hcl* (DICYCLOMINE HCL*) 10 Mg Capsule 10 MG PO QID for 5 Days, CAP Prov: Jake Carr MD 09/12/18 Ranitidine Hcl* (ZANTAC*) 150 Mg Tablet 150 MG ORAL TWICE A DAY, #30 TAB Prov: Jake Carr MD 09/12/18 Ondansetron Odt* (ZOFRAN ODT*) 4 Mg Tab.rapdis 4 MG BC EVERY 8 HOURS, #10 TAB 0 Refills Prov: Jake Carr MD 09/12/18 Patient Instructions: Threatened Miscarriage, Ynve-px-Oegu, Viral Gastroenteritis, Adult, Eydu-hv-Hmem Jake Carr MD Sep 12, 2018 14:03
== END 2018-09-12 10:54 | disposition home or self-care (01) ==
LOC: EMR 09:19
DX: O20.0 Threatened abortion (principal); Z3A.12 12 weeks gestation of pregnancy; O26.891 Other specified pregnancy related conditions, first trimester; K52.9 Noninfective gastroenteritis and colitis, unspecified; N88.8 Other specified noninflammatory disorders of cervix uteri
CPT/HCPCS: 36415; 76801; 76830; 80053; 81003; 81025; 83690; 84702; 85025; 96361; 96374; 96375; 99284; J2405; S0028

== ENCOUNTER 2019-04-25 08:54 | Emergency (ER) | payer MEDICAID, OTHER ==
[~2019-04-25] VITALS: Ht 157.5 cm; Wt 77.1 kg
[~2019-04-25 08:54] MED LIST changes: +DICYCLOMINE HCL10 MG PO; +ONDANSETRON ODT4 MG BC; +RANITIDINE HCL150 MG ORAL
[2019-04-25 08:57] VITALS: BP 104/55
--- NOTE | 2019-04-25 09:05 | NUR ---
ED Nurse Note: patient walked into ED from home complaining RIGHT wrist pain and inability to move fingers since last night. patient denies any injury or truam. patient is alert awake x4 ambulatory steady gait, breathing unlabored and even, speaking in full sentences. Rt wrist pain unable to move fingers started last night denies any tauma.
--- NOTE | 2019-04-25 09:25 | Emergency Room Report ---
History of Present Illness General Chief Complaint: Pain Source: Patient Present Illness HPI Disclaimer: Please note that this report is being documented using DRAGON technology. This can lead to erroneous entry secondary to incorrect interpretation by the dictating instrument. HPI: 33-year-old [id number] female presents for evaluation of right hand pain and swelling. Symptoms began last night. She works as a nurse and noted some pain in between the middle and ring finger MCPJs which then progressed to mild swelling. Is tender to palpation. She has difficulty with flexion of the ring and middle finger on the right hand. She cannot recall any obvious trauma. She does not do any heavy lifting at work. She denies any sensory changes, numbness, tingling. Denies pain in the wrist, swelling in the wrist, prior history of cysts. Denies any recent insect bites, skin breakdown, abrasions. Has not taken any medications prior to arrival. PMH: Denies PSH: section Allergies: Denies Social Hx: Denies drug or alcohol abuse Allergies: Coded Allergies: No Known Allergies (Unverified , 03/15/13) Patient History Last Menstrual Period: 2017 Now: No - gave a month ago : 3 Para: 3 Nursing Documentation-PMH Past Medical History: No History, Except For Hx Cardiac Problems: No - 03/2019 Hx Neurological Problems: Yes - LEFT WRIST PROBLEM LAST YEAR Review of Systems All Other Systems: negative except mentioned in HPI Physical Exam Vital Signs Date Time Temp Pulse Resp B/P (MAP) Pulse Ox O2 Delivery O2 Flow Rate FiO2 04/25/19 08:57 98.4 77 16 104/55 (71) 97 Room Air General: Awake and alert, no acute distress HEENT: NC/AT. EOMI. Resp: Normal work of breathing. Skin: Intact. No abrasions, laceration or rash over the exposed skin MSK: Normal tone and bulk. Moving all extremities. There is a soft tissue swelling in between the third and fourth MCP J on the right hand over the dorsal aspect. Tender to palpation. No overlying skin changes. It is soft. Patient is able to flex and extend the digits of the right hand though there is limitation to range of motion secondary to pain. No evidence of injury to the digits or dorsal/volar aspect of the hand. There is no pain or deformity in the wrist with full range of motion. Neuro: Awake and alert. Mentating appropriately. Sensation is intact to two- point discrimination over the radial and ulnar aspect of the digits. Procedures Additional Procedure Procedure Narrative Bedside ultrasound of the right hand: No obvious abscess, soft tissue swelling noted over the area of tenderness in the right hand. Medical Decision Making Diagnostic Impression: Primary Impression: Localized swelling on right hand ER Course Is a 33-year-old jxczj-wigo-mtryhxum female presenting for evaluation of pain and swelling over the dorsal aspect of the right hand that began last night without obvious trauma or injury. Differential includes was not limited to cyst , cellulitis, tendon injury, occult fracture, cellulitis. There is no indication of infection, no skin breakdown, no erythema, no warmth. Bedside ultrasound does not show an obvious fluid collection. Obtain an x-ray to rule out occult fracture and splint the patient for comfort. She can follow-up with orthopedic surgery. Will start NSAIDs for pain and swelling. She is not to lift anything with the right hand until symptoms are improved. Discussed reasons to return to the emergency department. She understands agrees with this treatment plan. Other X-Ray Diagnostic Results Other X-Ray Diagnostic Results : X-Ray ordered: R hand # of Views/Limited Vs Complete: 3 View Indication: Pain Interpretation: no dislocation, no soft tissue swelling, no fractures, nonspecific bowel gas Impression: No acute disease Electronically Signed by: Electronically signed by Dr. Eleno Joiner Reevaluation Time: 09:44 Last Vital Signs Date Time Temp Pulse Resp B/P (MAP) Pulse Ox O2 Delivery O2 Flow Rate FiO2 04/25/19 08:57 98.4 77 16 104/55 (71) 97 Room Air Reevaluation Impression No obvious fracture or significant soft tissue swelling seen on x-ray. We will put in a volar splint and follow-up with orthopedic surgery and primary care. Started on NSAIDs. Discussed weight limit restrictions and reasons to return to the emergency department. She understands and agrees with this treatment plan. Stable for outpatient follow-up. Disposition: HOME, SELF-CARE Condition: Stable Scripts Ibuprofen* (MOTRIN*) 600 Mg Tablet 600 MG ORAL Q8H PRN for For Pain, #30 TAB 0 Refills Prov: Eleno Joiner MD 04/25/19 Eleno Joiner MD Apr 25, 2019 09:25
--- NOTE | 2019-04-25 09:32 | NUR ---
ED Nurse Note: xray done at bedside.
[2019-04-25] MEDS ORDERED: IBUPROFEN600 MG ORAL (09:37)
[2019-04-25 09:48] VITALS: BP 104/55
--- NOTE | 2019-04-25 09:49 | NUR ---
ER DISCHARGE NOTE: Patient is cleared to be discharged per ERMD DR DESAI, pt is aox4, on room air, with stable vital signs. pt was given dc and prescription instructions, pt was able to verbalize understanding, pt id band removed without complications. pt is able to ambulate with steady gait. pt took all belongings.
--- NOTE | 2019-04-25 10:17 | Diagnostic Imaging Report ---
EXAM: XR Right Hand Complete, 3 or More Views CLINICAL HISTORY: PAIN TECHNIQUE: Frontal, lateral and oblique views of the right hand. COMPARISON: No relevant prior studies available. FINDINGS: Bones joints: Incidental note of endosteal cortical thickening of the ulnar aspect of the distal phalanx of the fourth digit. There is narrowing of the medullary canal. No acute fracture. No dislocation. Joint spaces are well-maintained. Soft tissues: Unremarkable. No radiopaque foreign body. IMPRESSION: 1. No acute fracture or malalignment. Joint spaces are well-maintained. 2. Incidental note of endosteal cortical thickening of the ulnar aspect of the distal phalanx of the fourth digit. There is narrowing of the medullary canal. Query old injury. Correlate with site of pain.
== END 2019-04-25 09:47 | disposition home or self-care (01) ==
LOC: EMR 09:32
DX: R22.31 Localized swelling, mass and lump, right upper limb (principal)
CPT/HCPCS: 29125; 73130; Z7502; 29130; 99283